=== PATIENT | female | born 1990 | race African-American/Black ===

== ENCOUNTER 2018-12-22 08:46 | Emergency (ER) | payer OTHER ==
[~2018-12-22] VITALS: Ht 170.2 cm; Wt 108.9 kg
[~2018-12-22 08:46] MED LIST: IBUPROFEN 600600 M1 PO; NORCO 5-325 TA1 EACH PO
[2018-12-22 09:12] LABS: URINE BILIRUBIN NEGATIVE (Negative); URINE BLOOD 3+ (Negative); URINE CLARITY SL CLOUDY; URINE COLOR YELLOW; URINE GLUCOSE-RANDOM* NEGATIVE (Negative); URINE KETONES NEGATIVE (Negative); URINE NITRITE-REFLEX NEGATIVE (Negative); URINE PROTEIN (DIPSTICK) NEGATIVE (Negative); URINE SPECIFIC GRAVITY >= 1.030 (1.005-1.035); URINE UROBILINOGEN 0.2 E.U./dl (0.2-1.0)
[2018-12-22 09:13] LABS: URINE LEUKOCYTES-REFLEX 2+ (Negative)
[2018-12-22 09:42] LABS: CASTS None Seen /LPF (None Seen); MUCUS >6 Heavy strn/LPF (None Seen); SQUAMOUS >10 Many /LPF (0-3)
[2018-12-22 09:43] LABS: URINE WBC-REFLEX >25 Many /HPF (0-5)
[2018-12-22 09:44] LABS: CRYSTALS None Seen /LPF (None Seen); URINE RBC 3-10 Few /HPF (0-2)
[2018-12-22] MEDS ORDERED: KEFLEX500 M1 PO (11:34)
[2018-12-22 12:00] VITALS: BP 132/78
== END 2018-12-22 12:15 | disposition home or self-care (01) ==
LOC: ER 08:46
PROVIDERS: Emergency Medicine
DX: A59.01 Trichomonal vulvovaginitis (principal); N39.0 Urinary tract infection, site not specified; F17.210 Nicotine dependence, cigarettes, uncomplicated

== ENCOUNTER → 2019-05-26 | Outpatient (CLI) | payer BC ==
[~2019-05-26] MED LIST changes: +KEFLEX500 M1 PO
== END ==
LOC: RAD 13:23
DX: L73.2 Hidradenitis suppurativa (principal); Z79.899 Other long term (current) drug therapy

== ENCOUNTER 2019-09-26 21:18 | Emergency (ER) | payer BC ==
[~2019-09-26] VITALS: Ht 170.2 cm; Wt 108.9 kg
[2019-09-26 21:20] VITALS: BP 135/90
[2019-09-26] MEDS ORDERED: NOHOMEMEDICATIONS (21:22)
[2019-09-26] MEDS ORDERED: PREDNISONE 20 M20 MG PO (22:29)
== END 2019-09-26 22:49 | disposition home or self-care (01) ==
LOC: ER 21:18
DX: R22.0 Localized swelling, mass and lump, head (principal); T78.40XA Allergy, unspecified, initial encounter; F12.90 Cannabis use, unspecified, uncomplicated; F17.210 Nicotine dependence, cigarettes, uncomplicated; Y92.89 Other specified places as the place of occurrence of the external cause